=== PATIENT | male | born 1935 | race Caucasian/White ===

== ENCOUNTER 2017-06-30 12:16 | Emergency (ER) | payer MEDICARE, OTHER ==
[2017-06-30 12:30] VITALS: BP 166/83
--- NOTE | 2017-06-30 12:37 | EDM.PDOC ---
ED HPI GENERAL MEDICAL PROBLEM - General Chief Complaint: Chest Pain Stated Complaint: FELL TWICE IN 24 HRS AND CHEST PAIN Time Seen by Provider: 06/30/17 12:37 Source of Information: Reports: Patient, Family (care worker) History Limitations: Reports: No Limitations - History of Present Illness INITIAL COMMENTS - FREE TEXT/NARRATIVE: 81-year-old male presents to the ED because he's fallen twice within the last 24 hours which is atypical for him. Both falls were unwitnessed. He was found lying on his left side earlier this morning and has suffered injuries to his left elbow with skin tears both above and below the elbow. No evidence of bony injury. Denies strikeing his head. There is a possibility of other falls and he may have gotten up on his own. It's unclear whether he's been any recent changes to his medications. Patient has known congestive heart failure. He has quite severe dementia and [place] [facility] [place] He therefore is unable to provide much history in particular as to why he falls. It's unclear when his last tetanus toxoid was for sure. Onset: Today (apparently has fallen twice within the last 24 hours once last night and once again this morning.) Onset Date: 06/29/17 (initially found in the floor last night at 2100 hrs. Unwitnessed fall. No apparent injuries at that time.) Onset Time: 11:00 (landing on the floor nose left side this morning at about 11: 00 again unwitnessed fall this time he suffered multiple skin tears to his left elbow region and complains of pain left upper back and shoulder area.) Duration: Hour(s): Location: Reports: Back (left upper back), Upper Extremity, Left (left elbow with skin tears above and below the elbow joint) Quality: Reports: Ache Severity: Moderate Improves with: Reports: None Worsens with: Reports: Movement Context: Reports: Trauma (falls 2 for unclear reasons.it appears this morning he tried to get up from an easy chair and collapsed suggesting possibility of orthostatic hypotension.). Denies: Activity, Exercise, Lifting, Sick Contact Associated Symptoms: Reports: Confusion, Chest Pain. Denies: Cough, cough w sputum (see history of present illness), Diaphoresis, Fever/Chills, Headaches, Loss of Appetite, Malaise, Nausea/Vomiting, Rash, Seizure, Shortness of Breath, Syncope Treatments MUD WORKER: Reports: Other (see below) (none.) - Related Data Allergies Allergy/AdvReac Type Severity Reaction Status Date / Time celecoxib [From Celebrex] Allergy Cannot Verified 06/30/17 12:26 Remember NSAIDS (Non-Steroidal Allergy Cannot Verified 06/30/17 12:26 Anti-Inflamma Remember oxycodone Allergy Cannot Verified 06/30/17 12:26 Remember Sulfa (Sulfonamide Allergy Cannot Verified 06/30/17 12:26 Antibiotics) Remember Home Meds: Home Meds Albuterol [Ventolin HFA] 2 puff INH QID PRN 06/30/17 [History] Cholecalciferol (Vitamin D3) [Vitamin D3] 2,000 unit PO DAILY 06/30/17 [History] Clopidogrel [Plavix] 75 mg PO DAILY 06/30/17 [History] Eplerenone. 25 mg PO DAILY 06/30/17 [History] Finasteride 5 mg PO DAILY 06/30/17 [History] Hydrochlorothiazide 25 mg PO DAILY 06/30/17 [History] LORazepam [Ativan] 1 mg PO BEDTIME PRN 06/30/17 [History] Lisinopril [Zestril] 40 mg PO DAILY 06/30/17 [History] Magnesium Oxide [Magnesium] 400 mg PO DAILY 06/30/17 [History] Menthol [Icy Hot] 1 patch TOP DAILY PRN 06/30/17 [History] Metoprolol Succinate 50 mg PO BID 06/30/17 [History] Multivitamin with Minerals [Multiple Vitamin] 1 tab PO DAILY 06/30/17 [History] QUEtiapine Fumarate [Seroquel] 75 mg PO BEDTIME 06/30/17 [History] Sertraline HCl 25 mg PO DAILY 06/30/17 [History] metFORMIN [Glucophage XR] 500 mg PO BID 06/30/17 [History] Past Medical History Cardiovascular History: Reports: Heart Valve Replacement (aortic valve replaced in the past.), Hypertension Respiratory History: Reports: COPD (mild.) Musculoskeletal History: Reports: Osteoarthritis (knees. Recent Synvisc shot to the left knee.) Neurological History: Reports: Alzheimers Disease Social & Family History - Tobacco Use Smoking Status *Q: Unknown Ever Smoked - Living Situation & Occupation Living situation: Reports: Extended Care Facility ([facility]) Occupation: Retired ED ROS GENERAL - Review of Systems Review Of Systems: See Below (unable to obtain any history from the patient due to his organic brain disease.) ED EXAM, GENERAL - Physical Exam Exam: See Below Exam Limited By: Altered Mental Status General Appearance: Alert, WD/WN, No Apparent Distress Eye Exam: Bilateral Eye: Normal Inspection Throat/Mouth: Normal Inspection, Normal Oropharynx Head: Atraumatic, Normocephalic, Other Neck: Limited Range of Motion Respiratory/Chest: Respiratory Distress (mild tachypnea at rest.), Decreased Breath Sounds (breath sounds are slightly diminished in both bases with no adventitial sounds noted.), Other (complains of pain around the periscapular area upper back with no evidence of bruising contusions or swellings.) Cardiovascular: Regular Rate, Rhythm, No Edema, No Gallop, No JVD, Systolic Murmur (grade 2/6 systolic ejection murmur holosystolic best heard just to the right of the sternal border . 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 2 tears distal humerus and 2 tears proximal forearm extensor surface.) Neurological: No Motor/Sensory Deficits, Confused. No: Normal Cognition, Normal Gait, Normal Reflexes Psychiatric: Normal Affect, Normal Mood Skin Exam: Warm, Dry, Intact, Normal Color, Other (skin tears left. Elbow region as mentioned above.) EKG INTERPRETATION EKG Date: 06/30/17 Time: 12:35 Rhythm: NSR Rate (Beats/Min): 76 [place]: LAD-Left [place] Deviation P-Wave: Enlarged (biatrial enlargement.) QRS: Other (left ventricular hypertrophy with strain pattern) ST-T: Other (T-wave inversion V5 V6 due to of left ventricular strain. So also inverted in leads 1 and aVL.) QT: Prolonged (mildly prolonged) EKG Interpretation Comments: abnormal ECG Course - Vital Signs Last Recorded V/S: Last Vital Signs Temp 36.4 C 06/30/17 12:26 Pulse 78 06/30/17 12:26 Resp 24 H 06/30/17 12:26 BP 166/83 H 06/30/17 12:26 Pulse Ox 94 L 06/30/17 12:26 Orthostatic Blood Pressure [ 150/82 Standing] Orthostatic Blood Pressure [ 157/88 Supine] - Orders/Labs/Meds Orders: Active Orders 24 hr Category Date Time Status EKG Documentation Completion [RC] STAT Care 06/30/17 12:38 Active Orthostatic Vital Signs [RC] ASDIRECTED Care 06/30/17 12:37 Active Vaccines to be Administered [RC] PER UNIT ROUTINE Care 06/30/17 12:57 Active Labs: Laboratory Tests 06/30/17 06/30/17 06/30/17 Range/Units 12:50 12:50 12:50 WBC 9.05 (4.23-9.07) K/mm3 RBC 4.84 (4.63-6.08) M/mm3 Hgb 14.4 (13.7-17.5) gm/L Hct 41.6 (40.1-51.0) % MCV 86.0 (79.0-92.2) fl MCH 29.8 (25.7-32.2) pg MCHC 34.6 (32.2-35.5) g/dl RDW Std Deviation 40.6 (35.1-43.9) fL Plt Count 186 (163-337) K/mm3 MPV 8.4 L (9.4-12.3) fl Neutrophils % (Manual) 81 H (40-60) % Band Neutrophils % 1 (0-10) % Lymphocytes % (Manual) 14 L (20-40) % Atypical Lymphs % 0 % Monocytes % (Manual) 2 (2-10) % Eosinophils % (Manual) 0 L (0.8-7.0) % Basophils % (Manual) 2 H (0.2-1.2) Platelet Estimate Adequate Plt Morphology Comment Normal RBC Morph Comment Normal PT 10.5 (8.0-13.0) SECONDS INR 0.97 Sodium 140 (136-145) mEq/L Potassium 4.0 (3.5-5.1) mEq/L Chloride 103 (98-107) mEq/L Carbon Dioxide 30 (21-32) mEq/L Anion Gap 11.0 (5-15) BUN 19 H (7-18) mg/dL Creatinine 1.3 (0.7-1.3) mg/dL Est Cr Clr Drug Dosing 40.22 mL/min Estimated GFR (MDRD) 53 (>60) mL/min BUN/Creatinine Ratio 14.6 (14-18) Glucose 216 H (83-115) mg/dL Calcium 9.5 (8.5-10.1) mg/dL Total Bilirubin 0.5 (0.2-1.0) mg/dL AST 21 (15-37) U/L ALT 20 (16-63) U/L Alkaline Phosphatase 78 (46-116) U/L CK-MB (CK-2) 2.0 (0-3.6) ng/ml Troponin I < 0.017 (0.00-0.056) ng/mL C-Reactive Protein 0.2 (<1.0) mg/dL NT-Pro-B Natriuret Pep (0-450) pg/mL Total Protein 6.5 (6.4-8.2) g/dl Albumin 3.2 L (3.4-5.0) g/dl Globulin 3.3 gm/dL Albumin/Globulin Ratio 1.0 (1-2) Urine Color (Yellow) Urine Appearance (Clear) Urine pH (5.0-8.0) Ur Specific [place] (1.005-1.030) Urine Protein (Negative) Urine Glucose (UA) (Negative) Urine Ketones (Negative) Urine Occult Blood (Negative) Urine Nitrite (Negative) Urine Bilirubin (Negative) Urine Urobilinogen (0.2-1.0) Ur Leukocyte Esterase (Negative) Urine RBC (0-5) /hpf Urine WBC (0-5) /hpf Ur Epithelial Cells (0-5) /hpf Urine Bacteria (FEW) /hpf Urine Mucus (FEW) /hpf 06/30/17 06/30/17 Range/Units 12:50 14:00 WBC (4.23-9.07) K/mm3 RBC (4.63-6.08) M/mm3 Hgb (13.7-17.5) gm/L Hct (40.1-51.0) % MCV (79.0-92.2) fl MCH (25.7-32.2) pg MCHC (32.2-35.5) g/dl RDW Std Deviation (35.1-43.9) fL Plt Count (163-337) K/mm3 MPV (9.4-12.3) fl Neutrophils % (Manual) (40-60) % Band Neutrophils % (0-10) % Lymphocytes % (Manual) (20-40) % Atypical Lymphs % % Monocytes % (Manual) (2-10) % Eosinophils % (Manual) (0.8-7.0) % Basophils % (Manual) (0.2-1.2) Platelet Estimate Plt Morphology Comment RBC Morph Comment PT (8.0-13.0) SECONDS INR Sodium (136-145) mEq/L Potassium (3.5-5.1) mEq/L Chloride (98-107) mEq/L Carbon Dioxide (21-32) mEq/L Anion Gap (5-15) BUN (7-18) mg/dL Creatinine (0.7-1.3) mg/dL Est Cr Clr Drug Dosing mL/min Estimated GFR (MDRD) (>60) mL/min BUN/Creatinine Ratio (14-18) Glucose (83-115) mg/dL Calcium (8.5-10.1) mg/dL Total Bilirubin (0.2-1.0) mg/dL AST (15-37) U/L ALT (16-63) U/L Alkaline Phosphatase (46-116) U/L CK-MB (CK-2) (0-3.6) ng/ml Troponin I (0.00-0.056) ng/mL C-Reactive Protein (<1.0) mg/dL NT-Pro-B Natriuret Pep 680 H (0-450) pg/mL Total Protein (6.4-8.2) g/dl Albumin (3.4-5.0) g/dl Globulin gm/dL Albumin/Globulin Ratio (1-2) Urine Color Yellow (Yellow) Urine Appearance Clear (Clear) Urine pH 7.5 (5.0-8.0) Ur Specific [place] 1.020 (1.005-1.030) Urine Protein Negative (Negative) Urine Glucose (UA) 2+ H (Negative) Urine Ketones Negative (Negative) Urine Occult Blood Negative (Negative) Urine Nitrite Negative (Negative) Urine Bilirubin Negative (Negative) Urine Urobilinogen 0.2 (0.2-1.0) Ur Leukocyte Esterase Negative (Negative) Urine RBC Not seen (0-5) /hpf Urine WBC 0-5 (0-5) /hpf Ur Epithelial Cells 0-5 (0-5) /hpf Urine Bacteria Not seen (FEW) /hpf Urine Mucus Not seen (FEW) /hpf Meds: Medications Discontinued Medications Generic Name Dose Route Start Last Admin Trade Name Freq PRN Reason Stop Dose Admin Diphtheria/Tetanus/Acell Pertussis 0.5 ml 06/30/17 12:57 06/30/17 13:18 Adacel IM 06/30/17 12:58 0.5 ml .ONCE ONE Administration - Radiology Interpretation Free Text/Narrative:: 81-year-old male who is currently residing in 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 The cause of his falls is unclear. I will have the nurses check his orthostatic blood pressures. 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 The last fall he was found lying on his left side on the floor and suffered skin tears to the yousif-elbow region 4. There is no evidence of injury to the shoulder or arm or forearm as he has full pronation supination able to touch the top of his head with his left hand. His pain is in his upper back in the distribution of the shoulder blade and underlying ribs. And pain at the thoracolumbar junction in his back. This is the primary reason he presented to the ED. Plan routine labs will be done. Chest x-ray with left rib detail to be done and CT thoracic spine and head to be done.since we cannot do fine when he had his last tetanus shot a will be administered today i.e. TDap. - Re-Assessments/Exams Free Text/Narrative Re-Assessment/Exam: 06/30/17 13:40 CT scan of the brain reveals advanced degenerative changes with enlargement of the lateral ventricles and encephalomalacia of the anterior horns bilaterally. There is an abnormal calcification along the lateral border of the right lateral ventricle which is likely a calcification but cannot be 100 % sure it is not an atypical bleed. I suspect it is a calcification.I will await radiology report. 06/30/17 14:15chest x-ray done with views of the left ribs do not reveal any fractures or abnormalities within the shoulder blade area. Appears to be contusion only.radiology does report on his CT brain and indicates they to cannot tell whether or not there may be a small bleed adjacent to the lateral ventricle on the right side. Recommend repeat CT in 24 hours. I think will ignore this for the most part because it is not amenable to any form of treatment and is likely to improve on its own. Also the patient has advanced degenerative brain disease and is not a surgical candidate. 06/30/17 14:17 Labs are back. White count is 9.05 with a 81% neutrophils and 1% band cells differential. Hemoccult is 14.4 with hematocrit of 41.6. Platelets are normal at 186,000. PT is 10.5 and INR 0.97. He is obviously not on Coumadin. Sodium 140 potassium 4.0.3 .Bicarbonate 30. I.e. some mild CO2 retainer. Anion gap is normal at 11.0 BUNs 19 creatinine 1.3. Glucose elevated at 216 compared with his diabetic state. Cardiac markers were normal with a CK- MB of 2.0 and a troponin of less than 0.017. C-reactive protein 0.2 BNP mildly elevated at 680. Urinalysis essentially is clear other than 2+ glucosuria.the exact reason for him to be falling is unclear. Is likely related to his underlying organic brain disease.multiple skin tears have been patched back together by Steri-Strips. Wound was dressed and cleansed. Discharged back into care of his guardian. Departure - Departure Time of Disposition: 14:18 Disposition: DC/Tfer to [facility] Reason for Transfer *Q: Other Condition: Poor Clinical Impression: Skin tear of left elbow without complication Alzheimer's disease with late onset Qualifiers: Dementia behavioral disturbance: without behavioral disturbance Qualified Code( s): G30.1 - Alzheimer's disease with late onset Fall as cause of accidental injury at home as place of occurrence Qualifiers: Encounter type: initial encounter Qualified Code(s): W19.XXXA - Unspecified fall, initial encounter Contusion of upper back Qualifiers: Encounter type: initial encounter Laterality: left Qualified Code(s): S20.222A - Contusion of left back wall of thorax, initial encounter Referrals: Wily Farrell MD [Primary Care Provider] - Forms: ED Department Discharge Additional Instructions: evaluation the emergency room today in regards to falls 2 unwitnessed in the last [address] of [address]. Last time he found lying on the left side and complaining of pain and left upper back and posterior shoulder area. Alzheimer's disease limits ability to obtain a good history. He obviously is injured his left side as he has multiple skin tears both above and below the elbow on the extensor surface. There is no answer evidence of bony injury within the elbow forearm or shoulder area. Are nontender to palpation. There is no obvious bruising or contusions to the left upper back but he complained of periscapular pain in this area. Also complained of pain in his mid lumbar spine area. X-rays of the ribs and upper back and shoulder did not reveal any abnormalities. CT of the thoracic spine reveals advanced degenerative changes with absence of disc spaces at multiple levels in the thoracic spine particularly at 45 and again at 11 and 12. No compression fractures were identified. He does have a thoracic and abdominal aortic aneurysm which is unchanged .CT head was also carried out and reveals an abnormal calcification in the lateral ventricle on the right side which is of no consequence. It really it reveals advanced degenerative brain disease. Diffuse small vessel ischemic changes in both basal ganglia without any definitive infarct or stroke. Lab work does not reveal any abnormalities other than a slightly elevated white count which I presume is due to stress response from falling and being injured. There are no other signs of infection. Therefore treatment at this time is continue with current medications. Monitoring as best as possible for prevention of future falls. - My Orders Last 24 Hours: My Active Orders 06/30/17 12:37 Orthostatic Vital Signs [RC] ASDIRECTED 06/30/17 12:38 EKG Documentation Completion [RC] STAT 06/30/17 12:57 Vaccines to be Administered [RC] PER UNIT ROUTINE - Assessment/Plan Last 24 Hours: My Active Orders 06/30/17 12:37 Orthostatic Vital Signs [RC] ASDIRECTED 06/30/17 12:38 EKG Documentation Completion [RC] STAT 06/30/17 12:57 Vaccines to be Administered [RC] PER UNIT ROUTINE
[2017-06-30] MEDS ORDERED: Diphtheria,Pertussis(Acell),Tetanus Vaccine 0.5 ML SDV IM ONE (12:57)
--- NOTE | 2017-06-30 14:21 | CT ---
Head CT Technique: Multiple axial sections through the brain were obtained. Intravenous contrast was not utilized. Comparison: No previous intracranial imaging. Findings: Ventricles along with basal cisterns and sulci over the convexities are moderately prominent. 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 Diminished density noted within the periventricular and subcortical white matter compatible with small vessel ischemic demyelination change. Diffuse atherosclerotic change noted within both vertebral vessels and within the carotid siphon. Minimal increased density presumably due to small amount of blood within the lateral ventricle on the right side. This small area of presumed hemorrhage measures about 7 mm in size. Etiology for this finding is not appreciated. No parenchymal hemorrhages are seen. No midline shift or mass effect is seen. Bone window settings were reviewed which show no discrete calvarial abnormality. Minimal mucosal thickening seen within the left ethmoid sinus. Impression: 1. Small high density area within the right lateral ventricle presumably due to small amount of blood measuring about 7 mm in size. Etiology for this is not seen. Followup head CT study could be considered in 24 hours to make sure this finding does not increase. 2. Generalized atrophy as described above with old left cerebellar infarct. Diagnostic code #5 I agree with preliminary report issued by [facility] ([facility] report finalized on 06/30/17, 2:28 PM Central Time)
--- NOTE | 2017-06-30 14:21 | CT ---
CT thoracic spine Technique: Multiple axial sections were obtained through the thoracic spine. Reconstructed coronal and sagittal images were obtained. Comparison: No previous thoracic spine imaging is available. Findings: Severe disc space narrowing is noted within C5-C6, C6-C7, C7-T1, T1-T2, T2-T3 and T3-T4. Severe disc space narrowing is also noted at T8-T9. Mild disc space narrowing seen within the midthoracic spine. Minimal spondylolisthesis noted at T8-T9 compatible with degenerative apophyseal change. Circumferential disc bulges are seen within the upper thoracic spine. Severe disc space narrowing noted at L2-L3. Vertebral bodies and posterior arches are intact. No fracture is seen. No bony central canal stenosis is seen. No bony neural foraminal stenosis is seen. Incidental note of prosthetic aortic valve. Impression: 1. Degenerative change as noted above. 2. Nothing acute is appreciated on CT study of the thoracic spine. Diagnostic code #3 I agree with preliminary report issued by [facility] ([facility] report finalized on 06/30/17, 2:32 PM Central Time)
--- NOTE | 2017-06-30 14:36 | CR ---
Left ribs: Three views of the left ribs were obtained. Comparison: No previous study. Degenerative change and scoliosis is seen within the spine. Previous sternotomy is noted. No discrete rib fracture or other bony abnormality is appreciated. Impression: 1. No discrete left-sided rib abnormality is seen. Other incidental findings as noted above. Diagnostic code #2
== END 2017-06-30 14:38 ==
LOC: JD.ED 12:16
DX: S51.012A Laceration without foreign body of left elbow, initial encounter (principal); S20.222A Contusion of left back wall of thorax, initial encounter; G30.1 Alzheimer's disease with late onset; J44.9 Chronic obstructive pulmonary disease, unspecified; M19.90 Unspecified osteoarthritis, unspecified site; Z88.8 Allergy status to other drugs, medicaments and biological substances; Z88.5 Allergy status to narcotic agent; Z23 Encounter for immunization; Z88.2 Allergy status to sulfonamides; Z79.899 Other long term (current) drug therapy; Z79.84 Long term (current) use of oral hypoglycemic drugs; W19.XXXA Unspecified fall, initial encounter
CPT/HCPCS: 36415; 70450; 70450-26; 71100-26-LT; 71100-LT; 72128; 72128-26; 80053; 81001; 82553; 83880; 84484; 85025; 85610; 86140; 90471; 90715; 93005; 93010; 99285; 99285-25

== ENCOUNTER 2018-01-12 19:29 | Emergency (ER) | payer MEDICARE, OTHER ==
[2018-01-12 19:44] VITALS: BP 137/61
[2018-01-12] MEDS ORDERED: Sodium Chloride 0.9% 1,000 ML IV SCH (20:15)
--- NOTE | 2018-01-12 20:20 | EDM.PDOC ---
ED HPI GENERAL MEDICAL PROBLEM - General Chief Complaint: Neurological Problem Stated Complaint: [facility] Time Seen by Provider: 01/12/18 19:54 Source of Information: Reports: EMS, Intermediate Records History Limitations: Reports: Altered Mental Status - History of Present Illness INITIAL COMMENTS - FREE TEXT/NARRATIVE: This is an 82-year-old male. He comes from a long term in [place] [facility] of ambulance. The report that I received was that he apparently was somewhat unresponsive with a decreased heart rate and blood pressure at the long term. When he was brought by the ambulance here his blood sugar was 160. When he arrived here he is less communicative than normal according to the ambulance crew. When I go to the room and talk with him he does attempt to verbalize but he whispers. He states he has some abdominal pain. He will respond to verbal stimuli however he is very sluggish and tries to keep his eyes closed. He looks extremely dehydrated. I'm not able to get much history from the patient himself though he does deny chest pain and he denies a headache. He is known to have Alzheimer's dementia. - Related Data Allergies Allergy/AdvReac Type Severity Reaction Status Date / Time celecoxib [From Celebrex] Allergy Cannot Verified 01/12/18 19:39 Remember NSAIDS (Non-Steroidal Allergy Cannot Verified 01/12/18 19:39 Anti-Inflamma Remember oxycodone Allergy Cannot Verified 01/12/18 19:39 Remember Sulfa (Sulfonamide Allergy Cannot Verified 01/12/18 19:39 Antibiotics) Remember Home Meds: Home Meds Albuterol [Ventolin HFA] 2 puff INH QID PRN 06/30/17 [History] Cholecalciferol (Vitamin D3) [Vitamin D3] 2,000 unit PO DAILY 06/30/17 [History] Clopidogrel [Plavix] 75 mg PO DAILY 06/30/17 [History] Finasteride 5 mg PO DAILY 06/30/17 [History] Hydrochlorothiazide 25 mg PO DAILY 06/30/17 [History] Lisinopril [Zestril] 40 mg PO DAILY 06/30/17 [History] Magnesium Oxide [Magnesium] 400 mg PO DAILY 06/30/17 [History] Menthol [Icy Hot] 1 patch TOP DAILY 06/30/17 [History] Multivitamin with Minerals [Multiple Vitamin] 1 tab PO DAILY 10/06/17 [History] QUEtiapine Fumarate [Seroquel] 75 mg PO BEDTIME 06/30/17 [History] Sertraline HCl 25 mg PO DAILY 06/30/17 [History] metFORMIN [Glucophage XR] 1,000 mg PO BID 06/30/17 [History] Benzonatate 100 mg PO TID PRN 01/12/18 [History] Eplerenone [Inspra] 25 mg PO DAILY 01/12/18 [History] Menthol/Camphor [Icy Hot Advanced Relief Cream] 1 applic TP DAILY PRN 01/12/18 [ History] Metoprolol Tartrate [Lopressor] 50 mg PO BID 01/12/18 [History] amLODIPine Besylate [Amlodipine Besylate] 5 mg PO DAILY 01/12/18 [History] glipiZIDE [Glipizide Xl] 5 mg PO DAILY 01/12/18 [History] traMADol [Ultram] 50 mg PO TID PRN 01/12/18 [History] Past Medical History Cardiovascular History: Reports: Heart Murmur, Heart Valve Replacement, Hypertension Respiratory History: Reports: COPD Genitourinary History: Reports: BPH Musculoskeletal History: Reports: Fracture, Osteoarthritis Neurological History: Reports: Alzheimers Disease, CVA Psychiatric History: Reports: Bipolar, Dementia Endocrine/Metabolic History: Reports: Diabetes, Type II - Past Surgical History Cardiovascular Surgical History: Reports: Valve Replacement Social & Family History - Family History Family Medical History: Noncontributory - Tobacco Use Smoking Status *Q: Unknown Ever Smoked - Living Situation & Occupation Living situation: Reports: Extended Care Facility ([facility] in [facility] for [facility]) Occupation: Retired ED ROS GENERAL - Review of Systems Review Of Systems: Unable To Obtain (I'm only able to obtain a brief review of systems because the patient cannot communicate well) Constitutional: Reports: Weakness Respiratory: Denies: Shortness of Breath Cardiovascular: Denies: Chest Pain GI/Abdominal: Reports: Abdominal Pain Skin: Reports: Other (Dry skin) Neurological: Reports: Confusion, Trouble Speaking, Weakness Psychiatric: Reports: Depression - Physical Exam Exam: See Below Exam Limited By: Altered Mental Status General Appearance: Lethargic. No: Mild Distress Eye Exam: Bilateral Eye: Normal Inspection, Other (Pupillary reflex is intact) Ears: Normal External Exam Nose: Normal Inspection Throat/Mouth: No Airway Compromise, Other (Very dry lips and mucous membranes, he whispers, there is no respiratory distress) Head Exam: Atraumatic, Normocephalic, Other (Dry scalp skin) Neck: Other (He will move his neck for me but he does have decreased range of motion though he does not complain of any particular pain) Respiratory/Chest: No Respiratory Distress, Lungs Clear, Other (Do not hear any rales wheezes or rhonchi but he has decreased breath sounds in his bases, palpation of the anterior chest and ribs does not reveal any obvious tenderness or response from the patient) Cardiovascular: Regular Rate, Rhythm, Systolic Murmur, Other (The systolic murmur is one over 4) GI/Abdominal: Soft, Other (Poor skin turgor, when I palpate his abdomen he says it hurts but he can't tell me where it hurts, he does not appear to be distended he is not rigid bowel sounds are decreased I do not feel any obvious masses at this time) Neuro Exam (Abbreviated): Confused, Disoriented, Slow to Respond, Memory Loss Recent Events Back Exam: Decreased Range of Motion Extremities: Normal Inspection, Other (His upper extremities skin is very dry he has no edema in the lower extremities noted) Psychiatric: Flat Affect Skin Exam: Warm, Dry, Other (Skin turgor on his arms is very poor) EKG INTERPRETATION EKG Date: 01/12/18 Time: 20:10 EKG Interpretation Comments: EKG shows a normal sinus rhythm with a left bundle branch block that looks exactly the same as an EKG from 06/30/2017. He has LVH noted and a prolonged QT interval. No acute changes can be determined due to the left bundle branch block. Course - Vital Signs Last Recorded V/S: Last Vital Signs Temp 97.2 F 01/12/18 19:32 Pulse 58 L 01/12/18 19:32 Resp 14 01/12/18 19:32 BP 137/61 01/12/18 19:32 Pulse Ox 95 01/12/18 19:32 - Orders/Labs/Meds Orders: Active Orders 24 hr Category Date Time Status EKG 12 Lead [EKG Documentation Completion] [RC] STAT Care 01/12/18 20:04 Active CXR [Chest 1V Frontal] [CR] Stat Exams 01/12/18 20:04 Taken KUB [Abdomen 1V Flat] [CR] Stat Exams 01/12/18 20:04 Taken Sodium Chloride 0.9% [Normal Saline] 1,000 ml Med 01/12/18 20:15 Active IV ASDIRECTED Medication Orders Sodium Chloride (Normal Saline) 1,000 mls @ 500 mls/hr IV ASDIRECTED VIDYA Last Admin: 01/12/18 20:15 Dose: 500 mls/hr Labs: Laboratory Tests 01/12/18 01/12/18 Range/Units 20:25 20:25 WBC 13.47 H (4.23-9.07) K/mm3 RBC 4.55 L (4.63-6.08) M/mm3 Hgb 13.6 L (13.7-17.5) gm/L Hct 40.1 (40.1-51.0) % MCV 88.1 (79.0-92.2) fl MCH 29.9 (25.7-32.2) pg MCHC 33.9 (32.2-35.5) g/dl RDW Std Deviation 44.4 H (35.1-43.9) fL Plt Count 186 (163-337) K/mm3 MPV 8.6 L (9.4-12.3) fl Neut % (Auto) 84.4 H (34.0-67.9) % Lymph % (Auto) 7.5 L (21.8-53.1) % [place] % (Auto) 6.2 (5.3-12.2) % Eos % (Auto) 1.2 (0.8-7.0) Baso % (Auto) 0.3 (0.1-1.2) % Neut # (Auto) 11.38 H (1.78-5.38) K/mm3 Lymph # (Auto) 1.01 L (1.32-3.57) K/mm3 [place] # (Auto) 0.83 H (0.30-0.82) K/mm3 Eos # (Auto) 0.16 (0.04-0.54) K/mm3 Baso # (Auto) 0.04 (0.01-0.08) K/mm3 Manual Slide Review Normal smear Sodium 140 (136-145) mEq/L Potassium 4.2 (3.5-5.1) mEq/L Chloride 103 (98-107) mEq/L Carbon Dioxide 29 (21-32) mEq/L Anion Gap 12.2 (5-15) BUN 31 H (7-18) mg/dL Creatinine 1.2 (0.7-1.3) mg/dL Est Cr Clr Drug Dosing TNP Estimated GFR (MDRD) 58 (>60) mL/min BUN/Creatinine Ratio 25.8 H (14-18) Glucose 156 H (83-115) mg/dL Calcium 9.6 (8.5-10.1) mg/dL Magnesium 1.4 L (1.8-2.4) mg/dl Total Bilirubin 0.7 (0.2-1.0) mg/dL AST 16 (15-37) U/L ALT 13 L (16-63) U/L Alkaline Phosphatase 87 (46-116) U/L Troponin I < 0.017 (0.00-0.056) ng/mL Total Protein 6.8 (6.4-8.2) g/dl Albumin 3.2 L (3.4-5.0) g/dl Globulin 3.6 gm/dL Albumin/Globulin Ratio 0.9 L (1-2) Lipase 84 (73-393) U/L Meds: Medications Generic Name Dose Route Start Last Admin Trade Name Freq PRN Reason Stop Dose Admin Sodium Chloride 1,000 mls @ 500 mls/hr 01/12/18 20:15 01/12/18 20:15 Normal Saline IV 500 mls/hr ASDIRECTED VIDYA Administration Discontinued Medications Generic Name Dose Route Start Last Admin Trade Name Freq PRN Reason Stop Dose Admin Sodium Chloride 500 mls @ 500 mls/hr 01/12/18 22:25 01/12/18 22:32 Normal Saline IV 01/12/18 23:24 500 mls/hr .BOLUS ONE Administration - Radiology Interpretation Free Text/Narrative:: Chest x-ray does not show grade expansion but I don't see any obvious acute infiltrates. His KUB did not suggest any obstructive signs. - Re-Assessments/Exams Free Text/Narrative Re-Assessment/Exam: 01/13/18 01:42 Patient has been much more responsive after getting 2 L of fluids. He will respond appropriately to verbal stimuli though he is somewhat difficult to understand his verbal communication. He does not appear to have had any weakness in his extremities at this time. 01/13/18 01:44 His labs do show some mild abnormalities but nothing that appears to be immediately life threatening. I am not certain as to what caused his initial unresponsiveness or low blood pressure except possibly his fluid status being somewhat decreased. 01/13/18 02:19 Patient is becoming more alert and the blood pressure has been fairly good. Seems it will wake him up and move around his blood pressure will go up to about 160s over 70s or 80s when he sleeping drops down to 130s over 70s and 80s. 01/13/18 04:27 We are still waiting for [facility] in [place] to send a transport to pick the patient up and take him back home. 01/13/18 04:45 Patient is much more awake and actually responding much more appropriately. His ride from [place] has, and we will discharge him back to the long term. They 're to continue with his normal medications but they need to push fluids on him so he stays better hydrated. Departure - Departure Time of Disposition: 04:46 Disposition: Home, Self-Care 01 Condition: Fair Clinical Impression: Mild dehydration Low blood pressure Qualifiers: Hypotension type: unspecified hypotension type Qualified Code(s): I95.9 - Hypotension, unspecified Alzheimer's disease with late onset Qualifiers: Dementia behavioral disturbance: without behavioral disturbance Qualified Code( s): G30.1 - Alzheimer's disease with late onset - Discharge Information Referrals: Wily Farrell MD [Primary Care Provider] - Forms: ED Department Discharge Additional Instructions: Continue with the medications and activity he had prior to coming to the emergency department, follow-up with his family doctor this coming week for recheck, return to the ER if he has a reoccurrence of his symptoms, please encourage him to drink fluids since he was dehydrated - My Orders Last 24 Hours: My Active Orders 01/12/18 20:04 EKG 12 Lead [EKG Documentation Completion] [RC] STAT CXR [Chest 1V Frontal] [CR] Stat KUB [Abdomen 1V Flat] [CR] Stat 01/12/18 20:15 Sodium Chloride 0.9% [Normal Saline] 1,000 ml IV ASDIRECTED - Assessment/Plan Last 24 Hours: My Active Orders 01/12/18 20:04 EKG 12 Lead [EKG Documentation Completion] [RC] STAT CXR [Chest 1V Frontal] [CR] Stat KUB [Abdomen 1V Flat] [CR] Stat 01/12/18 20:15 Sodium Chloride 0.9% [Normal Saline] 1,000 ml IV ASDIRECTED
[2018-01-12] MEDS ORDERED: Sodium Chloride 0.9% 500 ML IV ONE (22:25)
--- NOTE | 2018-01-14 12:54 | CR ---
Chest: Frontal view of the chest was obtained. Comparison: No prior chest x-ray, prior rib x-ray of 06/30/17 is available. Heart is slightly enlarged. Tortuous thoracic aorta is seen. Lungs show no acute parenchymal densities. Previous sternotomy is noted. Degenerative change is scattered within both shoulders as well as within the spine. Impression: 1. Findings as noted above. Nothing acute is appreciated on frontal chest x-ray. Diagnostic code #2
--- NOTE | 2018-01-14 12:54 | CR ---
Abdomen: Supine view of the abdomen was obtained. Comparison: No prior abdominal imaging. Bowel gas pattern is normal. Scattered degenerative change is seen within the spine. Surgical clips are noted from prior cholecystectomy. Vascular calcification is noted. No soft tissue abnormality is appreciated. Impression: 1. Incidental findings. Nothing acute is seen on supine abdominal x-ray. Diagnostic code #2
== END 2018-01-13 04:58 ==
LOC: JD.ED 19:29
DX: E86.0 Dehydration (principal); I95.9 Hypotension, unspecified; G30.1 Alzheimer's disease with late onset; I10 Essential (primary) hypertension; J44.9 Chronic obstructive pulmonary disease, unspecified; E11.9 Type 2 diabetes mellitus without complications; F31.9 Bipolar disorder, unspecified; Z88.5 Allergy status to narcotic agent; Z88.2 Allergy status to sulfonamides; Z88.8 Allergy status to other drugs, medicaments and biological substances; Z79.899 Other long term (current) drug therapy
CPT/HCPCS: 36415; 71045; 74018; 80053; 83690; 83735; 84484; 85025; 93005; 96360; 96361; 99285; J7040; 93010; 99284-25

== ENCOUNTER 2018-04-15 17:49 | Emergency (ER) | payer MEDICARE, OTHER ==
[2018-04-15] MEDS ORDERED: Sodium Chloride 0.9% 10 ML Syringe FLUSH PRN (17:55)
--- NOTE | 2018-04-15 20:16 | EDM.PDOC ---
ED HPI GENERAL MEDICAL PROBLEM - General Chief Complaint: Neuro Symptoms/Deficits Stated Complaint: AMBULANCE Time Seen by Provider: 04/15/18 17:51 Source of Information: Reports: EMS, [facility] Records History Limitations: Reports: Altered Mental Status - History of Present Illness INITIAL COMMENTS - FREE TEXT/NARRATIVE: The patient presents by [place] ambulance from [facility] with a seizure. His nurse witnessed a 20 second seizure tonight. He has not been ill recently. He has no fever, cough, headache, chest pain, shortness or breath, abdominal pain, nausea or vomiting. He has dementia and it is hard to get a history. Onset: Sudden Duration: Minutes: Location: Reports: Generalized Severity: Moderate Improves with: Reports: None Worsens with: Reports: None Associated Symptoms: Reports: No Other Symptoms - Related Data Allergies Allergy/AdvReac Type Severity Reaction Status Date / Time celecoxib [From Celebrex] Allergy Cannot Verified 04/15/18 17:55 Remember NSAIDS (Non-Steroidal Allergy Cannot Verified 04/15/18 17:55 Anti-Inflamma Remember oxycodone Allergy Cannot Verified 04/15/18 17:55 Remember Sulfa (Sulfonamide Allergy Cannot Verified 04/15/18 17:55 Antibiotics) Remember Home Meds: Home Meds Albuterol [Ventolin HFA] 2 puff INH QID PRN 06/30/17 [History] Cholecalciferol (Vitamin D3) [Vitamin D3] 2,000 unit PO DAILY 06/30/17 [History] Clopidogrel [Plavix] 75 mg PO DAILY 06/30/17 [History] Finasteride 5 mg PO DAILY 06/30/17 [History] Hydrochlorothiazide 25 mg PO DAILY 06/30/17 [History] Lisinopril [Zestril] 40 mg PO DAILY 06/30/17 [History] Magnesium Oxide [Magnesium] 400 mg PO DAILY 06/30/17 [History] Menthol [Icy Hot] 1 patch TOP DAILY 06/30/17 [History] Multivitamin with Minerals [Multiple Vitamin] 1 tab PO DAILY 06/30/17 [History] QUEtiapine Fumarate [Seroquel] 100 mg PO BEDTIME 06/30/17 [History] Sertraline HCl 25 mg PO DAILY 06/30/17 [History] metFORMIN [Glucophage XR] 1,000 mg PO BID 06/30/17 [History] Benzonatate 100 mg PO TID PRN 01/12/18 [History] Eplerenone [Inspra] 25 mg PO DAILY 01/12/18 [History] Menthol/Camphor [Icy Hot Advanced Relief Cream] 1 applic TP DAILY PRN 01/12/18 [ History] Metoprolol Tartrate [Lopressor] 50 mg PO BID 01/12/18 [History] amLODIPine Besylate [Amlodipine Besylate] 5 mg PO DAILY 01/12/18 [History] glipiZIDE [Glipizide Xl] 5 mg PO DAILY 01/12/18 [History] traMADol [Ultram] 50 mg PO TID PRN 01/12/18 [History] Past Medical History Cardiovascular History: Reports: Heart Murmur, Heart Valve Replacement, Hypertension Respiratory History: Reports: COPD Genitourinary History: Reports: BPH Musculoskeletal History: Reports: Fracture, Osteoarthritis Neurological History: Reports: Alzheimers Disease, CVA Psychiatric History: Reports: Bipolar, Dementia Endocrine/Metabolic History: Reports: Diabetes, Type II - Past Surgical History Cardiovascular Surgical History: Reports: Valve Replacement Social & Family History - Family History Family Medical History: Noncontributory - Tobacco Use Smoking Status *Q: Unknown Ever Smoked - Caffeine Use Caffeine Use: Reports: None - Living Situation & Occupation Living situation: Reports: Extended Care Facility ([facility] in [facility] for [facility]'s disease patients) Occupation: Retired ED ROS GENERAL - Review of Systems Review Of Systems: See Below Constitutional: Reports: No Symptoms HEENT: Reports: No Symptoms Respiratory: Reports: No Symptoms Cardiovascular: Reports: No Symptoms Endocrine: Reports: No Symptoms GI/Abdominal: Reports: No Symptoms : Reports: No Symptoms Musculoskeletal: Reports: No Symptoms Skin: Reports: Dryness Neurological: Reports: Seizure. Denies: Headache - Physical Exam Exam: See Below Exam Limited By: No Limitations General Appearance: Alert, No Apparent Distress Ears: Normal External Exam Nose: Normal Inspection Head Exam: Atraumatic, Normocephalic Neck: Normal Inspection, Supple, Non-Tender Respiratory/Chest: No Respiratory Distress, Lungs Clear, Normal Breath Sounds Cardiovascular: Regular Rate, Rhythm, No Edema, No Murmur GI/Abdominal: Soft, Non-Tender, No Organomegaly, No Mass Neuro Exam (Abbreviated): Alert, No Motor/Sensory Deficits, Other (patient is no orientated but he can answer some questions) EKG INTERPRETATION EKG Date: 04/15/18 Time: 18:14 Rhythm: NSR Rate (Beats/Min): 67 Farrell: Normal P-Wave: Present QRS: Wide ST-T: Normal QT: Normal Course - Vital Signs Last Recorded V/S: Last Vital Signs Temp 97.5 F 04/15/18 17:50 Pulse 62 04/15/18 17:50 Resp 16 04/15/18 17:50 BP Pulse Ox 98 04/15/18 17:50 - Orders/Labs/Meds Orders: Active Orders 24 hr Category Date Time Status Cardiac Monitoring [RC] . DIRECTED Care 04/15/18 17:55 Active EKG Documentation Completion [RC] STAT Care 04/15/18 17:57 Active Insert Urinary Catheter [OM.PC] Q24H Care 04/15/18 18:15 Ordered Oxygen Therapy [RC] PRN Care 04/15/18 17:55 Active Peripheral IV Care [RC] . DIRECTED Care 04/15/18 17:56 Active Urinary Catheter Assessment [RC] ASDIRECTED Care 04/15/18 18:14 Active Head wo Cont [CT] Stat Exams 04/15/18 17:57 Taken UA W/MICROSCOPIC [URIN] Stat Lab 04/15/18 18:05 Ordered Sodium Chloride 0.9% [Saline Flush] Med 04/15/18 17:55 Active 10 ml FLUSH ASDIRECTED PRN Peripheral IV Insertion Adult [OM.PC] Stat Oth 04/15/18 17:55 Ordered Medication Orders Sodium Chloride (Saline Flush) 10 ml FLUSH ASDIRECTED PRN PRN Reason: Keep Vein Open Last Admin: 04/15/18 18:00 Dose: 10 ml Labs: Laboratory Tests 04/15/18 04/15/18 04/15/18 Range/Units 18:05 18:05 18:05 WBC 13.43 H (4.23-9.07) K/mm3 RBC 4.31 L (4.63-6.08) M/mm3 Hgb 12.9 L (13.7-17.5) gm/L Hct 38.0 L (40.1-51.0) % MCV 88.2 (79.0-92.2) fl MCH 29.9 (25.7-32.2) pg MCHC 33.9 (32.2-35.5) g/dl RDW Std Deviation 42.3 (35.1-43.9) fL Plt Count 185 (163-337) K/mm3 MPV 8.7 L (9.4-12.3) fl Neut % (Auto) 82.2 H (34.0-67.9) % Lymph % (Auto) 9.0 L (21.8-53.1) % [place] % (Auto) 5.4 (5.3-12.2) % Eos % (Auto) 2.7 (0.8-7.0) Baso % (Auto) 0.4 (0.1-1.2) % Neut # (Auto) 11.03 H (1.78-5.38) K/mm3 Lymph # (Auto) 1.21 L (1.32-3.57) K/mm3 [place] # (Auto) 0.73 (0.30-0.82) K/mm3 Eos # (Auto) 0.36 (0.04-0.54) K/mm3 Baso # (Auto) 0.06 (0.01-0.08) K/mm3 Manual Slide Review Normal smear Sodium 139 (136-145) mEq/L Potassium 4.0 (3.5-5.1) mEq/L Chloride 104 (98-107) mEq/L Carbon Dioxide 30 (21-32) mEq/L Anion Gap 9.0 (5-15) BUN 25 H (7-18) mg/dL Creatinine 1.2 (0.7-1.3) mg/dL Est Cr Clr Drug Dosing TNP Estimated GFR (MDRD) 58 (>60) mL/min BUN/Creatinine Ratio 20.8 H (14-18) Glucose 137 H (83-115) mg/dL Calcium 8.8 (8.5-10.1) mg/dL Magnesium 1.5 L (1.8-2.4) mg/dl Total Bilirubin 0.3 (0.2-1.0) mg/dL AST 26 (15-37) U/L ALT 18 (16-63) U/L Alkaline Phosphatase 80 (46-116) U/L Troponin I < 0.017 (0.00-0.056) ng/mL Total Protein 6.3 L (6.4-8.2) g/dl Albumin 3.2 L (3.4-5.0) g/dl Globulin 3.1 gm/dL Albumin/Globulin Ratio 1.0 (1-2) Urine Color Yellow (Yellow) Urine Appearance Clear (Clear) Urine pH 7.0 (5.0-8.0) Ur Specific [place] 1.020 (1.005-1.030) Urine Protein Negative (Negative) Urine Glucose (UA) Negative (Negative) Urine Ketones Negative (Negative) Urine Occult Blood 2+ H (Negative) Urine Nitrite Negative (Negative) Urine Bilirubin Negative (Negative) Urine Urobilinogen 0.2 (0.2-1.0) Ur Leukocyte Esterase Negative (Negative) Urine RBC 20-30 H (0-5) /hpf Urine WBC 0-5 (0-5) /hpf Ur Epithelial Cells 0-5 (0-5) /hpf Urine Bacteria Few (FEW) /hpf Urine Mucus Not seen (FEW) /hpf Meds: Medications Generic Name Dose Route Start Last Admin Trade Name Freq PRN Reason Stop Dose Admin Sodium Chloride 10 ml 04/15/18 17:55 04/15/18 18:00 Saline Flush FLUSH 10 ml ASDIRECTED PRN Administration Keep Vein Open - Re-Assessments/Exams Free Text/Narrative Re-Assessment/Exam: 04/15/18 20:13 I ordered an IV saline lock, EKG, CT of his head and labs. His EKG shows a NSR with a wide QRS. His CT shows negative head CT, senescent changes of the brain are present, and chronic left cerebellar infarct. His WBC was slightly elevated at 13.43. His Hgb and platelets look good. His glucose was elevated at 137. His magnesium was a little low at 1.5. His troponin is negative. His UA shows no UTI. He has no infection. This could be from his dementia or CVA. I will have him follow up with his primary for further work up. Departure - Departure Time of Disposition: 20:20 Disposition: Home, Self-Care 01 Condition: Good Clinical Impression: Seizure Alzheimer's disease with late onset Qualifiers: Dementia behavioral disturbance: without behavioral disturbance Qualified Code( s): G30.1 - Alzheimer's disease with late onset - Discharge Information *PRESCRIPTION DRUG MONITORING PROGRAM REVIEWED*: Not Applicable *COPY OF PRESCRIPTION DRUG MONITORING REPORT IN PATIENT PREET: Not Applicable Referrals: PCP,None [Primary Care Provider] - Additional Instructions: Take your medication as prescribed. Follow up with your doctor. Please return if you are worse. - My Orders Last 24 Hours: My Active Orders 04/15/18 17:55 Cardiac Monitoring [RC] . DIRECTED Oxygen Therapy [RC] PRN Sodium Chloride 0.9% [Saline Flush] 10 ml FLUSH ASDIRECTED PRN Peripheral IV Insertion Adult [OM.PC] Stat 04/15/18 17:56 Peripheral IV Care [RC] . DIRECTED 04/15/18 17:57 EKG Documentation Completion [RC] STAT Head wo Cont [CT] Stat 04/15/18 18:05 UA W/MICROSCOPIC [URIN] Stat 04/15/18 18:14 Urinary Catheter Assessment [RC] ASDIRECTED 04/15/18 18:15 Insert Urinary Catheter [OM.PC] Q24H - Assessment/Plan Last 24 Hours: My Active Orders 04/15/18 17:55 Cardiac Monitoring [RC] . DIRECTED Oxygen Therapy [RC] PRN Sodium Chloride 0.9% [Saline Flush] 10 ml FLUSH ASDIRECTED PRN Peripheral IV Insertion Adult [OM.PC] Stat 04/15/18 17:56 Peripheral IV Care [RC] . DIRECTED 04/15/18 17:57 EKG Documentation Completion [RC] STAT Head wo Cont [CT] Stat 04/15/18 18:05 UA W/MICROSCOPIC [URIN] Stat 04/15/18 18:14 Urinary Catheter Assessment [RC] ASDIRECTED 04/15/18 18:15 Insert Urinary Catheter [OM.PC] Q24H
--- NOTE | 2018-04-16 08:52 | CT ---
Head CT Technique: Multiple axial sections through the brain were obtained. Intravenous contrast was not utilized. Comparison: Prior head CT study of 06/30/17. Findings: Ventricles along with basal cisterns and sulci over the convexities are moderately prominent. Old infarct is identified within the left cerebellar hemisphere which is stable. Diminished density is noted within portions of the periventricular and subcortical white matter compatible with small vessel ischemic demyelination change. No other abnormal parenchymal densities are seen. No evidence of intracranial hemorrhage. No midline shift or mass effect is seen. Bone window settings show no acute calvarial abnormality. Visualized sinuses are clear. Impression: 1. Senescent change as noted above. No acute intracranial abnormality is identified. No appreciable change is seen from previous head CT exam. Diagnostic code #2 I agree with preliminary report issued by [employer] ([facility] preliminary report dictated on 04/15/18, 8:41 PM Central Time)
== END 2018-04-15 22:30 | disposition home or self-care (01) ==
LOC: JD.ED 17:49
DX: R56.9 Unspecified convulsions (principal); G30.1 Alzheimer's disease with late onset; F02.80 Dementia in other diseases classified elsewhere, unspecified severity, without behavioral disturbance, psychotic disturbance, mood disturbance, and anxiety; I10 Essential (primary) hypertension; J44.9 Chronic obstructive pulmonary disease, unspecified; E11.9 Type 2 diabetes mellitus without complications; F31.9 Bipolar disorder, unspecified; Z88.2 Allergy status to sulfonamides; Z88.8 Allergy status to other drugs, medicaments and biological substances; Z79.84 Long term (current) use of oral hypoglycemic drugs; Z79.899 Other long term (current) drug therapy
CPT/HCPCS: 36415; 70450; 80053; 81001; 83735; 84484; 85025; 93005; 99285; J7050; 93010; 99284-25